=== PATIENT | female | born 1990 | race American Indian/Alaskan Native ===

== ENCOUNTER 2022-04-15 13:42 | Outpatient (CLI) | payer MEDICAID ==
[2022-04-15] MEDS ORDERED: ACETAMINOPHEN 500 MG TAB PO SCH (14:30)
[2022-04-15 15:57] LABS: Bilirubin,Urine NEG (Negative); Blood,Urine NEG (Negative); Color,Urine Yellow (Yellow); Mucus,Urine 2+ /HPF; Protein,Urine <15 mg/dL mg/dL (Negative); RBC,Urine < 1.0 /HPF (0.0-6.0)
[2022-04-15 16:28] VITALS: BP 109/64
--- NOTE | 2022-04-15 18:06 | Ultrasound Report ---
Limited OB Ultrasound Biophysical profile ultrasound HISTORY: r/o placental abruption. TECHNIQUE: Grayscale and color imaging performed. COMPARISON: None FINDINGS: Single viable intrauterine gestation with cephalic presentation. CINDY is 7.5 cm. Heart rate is 157 bpm . Fundal location of the placenta with no evidence of placenta previa or obvious abruption. On biophysical profile, the fetus received a score of 2 out of 2 for breathing, movement, posture/ton e, and CINDY. Total score was 8 out of 8. IMPRESSION: 1. Single viable intrauterine gestation as above. 2. Normal BPP. Signer Name: Avel Perez MD Signed: 04/15/2022 6:02 PM Workstation Name: [id number]
== END 2022-04-15 17:28 | disposition home or self-care (01) ==
LOC: TRG 13:42 → APU 13:47 → TRG 17:28
PROVIDERS: ATTEND Student in an Organized Health Care Education/Training Program
DX: Z34.83 Encounter for supervision of other normal pregnancy, third trimester (principal); Z3A.35 35 weeks gestation of pregnancy
CPT/HCPCS: 76815; 76819; 81001